=== PATIENT | female | born 1945 | race Caucasian/White ===

== ENCOUNTER → 2018-06-30 11:58 | Outpatient (CLI) | payer MEDICARE, OTHER, SELFPAY ==
--- NOTE | 2018-06-30 | DI.MG.S_ITS ---
BILATERAL DIGITAL SCREENING MAMMOGRAM 3D/2D WITH CAD: 06/30/2018 CLINICAL: Routine screening. Family history of breast cancer. Comparison is made to exams dated: 06/09/2017 mammogram, 06/06/2016 mammogram, and 05/30/2015 mammogram - [facility]. The tissue of both breasts is extremely dense, which lowers the sensitivity of mammography. Current study was also evaluated with a Computer Aided Detection (CAD) system. There are benign vascular calcifications in both breasts. No significant masses, calcifications, or other findings are seen in either breast. There has been no significant interval change. IMPRESSION: There is no mammographic evidence of malignancy. A 1 year screening mammogram is recommended. This exam was interpreted at Station ID: [id number]. NOTE: For mammograms, a report in lay terms will be sent to the patient. Approximately 15% of breast malignancies will not be visualized mammographically. In the management of a palpable breast mass, a negative mammogram must not discourage biopsy of a clinically suspicious lesion. Electronically Signed By: Anant del rio/pelon:07/01/2018 07:19:57 letter sent: Normal Exam ACR BI-RADS Category 2: Benign Finding(s) 3342F
== END ==
PROVIDERS: Family Provider Family Medicine; PCP Family Medicine; Visit Provider Family Medicine
DX: Z12.31 Encounter for screening mammogram for malignant neoplasm of breast (principal); Z80.3 Family history of malignant neoplasm of breast
CPT/HCPCS: 77063; 77067

== ENCOUNTER → 2018-08-31 11:11 | Outpatient (CLI) | payer MEDICARE, OTHER, SELFPAY ==
--- NOTE | 2018-08-31 | DI.RAD.S_ITS ---
PROCEDURE: FL UPPER GI W AIR INDICATIONS: DYSPHAGIA COMPARISON: None. FINDINGS: KUB: Preprocedural wood calker film demonstrates a normal bowel gas pattern. No suspicious abdominal calcifications. Visualized solid organ contours appear normal. Bony structures appear unremarkable. Esophagus: Esophageal mucosa is normal on air-contrast views, however suboptimal evaluation due to poor gaseous distention. On single-contrast views, there is decreased esophageal peristalsis. No strictures, extrinsic mass effects, or diverticula. No hiatal hernia or elicited gastroesophageal reflux. Stomach: The stomach is normally distensible, with normal rugal fold thickness. No mucosal masses or ulcers. Pylorus and duodenal bulb appear normal in morphology. Duodenal folds are normal in thickness as well. IMPRESSION: Esophageal dysmotility Dictated by: Giovanny Jin M.D. on 08/31/2018 at 15:35 Approved by: Giovanny Jin M.D. on 08/31/2018 at 15:37
== END ==
PROVIDERS: Family Provider Family Medicine; PCP Family Medicine; Visit Provider Family Medicine
DX: R13.10 Dysphagia, unspecified (principal); K22.4 Dyskinesia of esophagus
CPT/HCPCS: 74247

== ENCOUNTER → 2019-02-15 12:32 | Outpatient (CLI) | payer MEDICARE, OTHER, SELFPAY | PROVIDERS: PCP Family Medicine; Visit Provider Family Medicine | DX: M85.852 Other specified disorders of bone density and structure, left thigh (principal); Z78.0 Asymptomatic menopausal state; Z87.891 Personal history of nicotine dependence | CPT/HCPCS: 77080 ==

== ENCOUNTER → 2019-11-08 09:43 | Outpatient (CLI) | payer MEDICARE, OTHER, SELFPAY ==
--- NOTE | 2019-11-08 | DI.MG.S_ITS ---
BILATERAL DIGITAL SCREENING MAMMOGRAM 3D/2D WITH CAD: 11/08/2019 CLINICAL: Routine screening. Family history of breast cancer. Comparison is made to exams dated: 06/30/2018 mammogram, 06/09/2017 mammogram, and 06/06/2016 mammogram - [facility]. The tissue of both breasts is heterogeneously dense. This may lower the sensitivity of mammography. Current study was also evaluated with a Computer Aided Detection (CAD) system. There is a new 1.2 cm oval equal density focal asymmetry in the left breast at 9 o'clock middle depth. No other significant masses, calcifications, or other findings are seen in either breast. IMPRESSION: INCOMPLETE: NEEDS ADDITIONAL IMAGING EVALUATION The new 1.2 cm oval equal density focal asymmetry in the left breast resembles a cyst and is indeterminate. Additional views with possible ultrasound are recommended. This exam was interpreted at Station ID: [id number]. NOTE: For mammograms, a report in lay terms will be sent to the patient. Approximately 15% of breast malignancies will not be visualized mammographically. In the management of a palpable breast mass, a negative mammogram must not discourage biopsy of a clinically suspicious lesion. Electronically Signed By: Tito Mancia M.D. aty/:11/08/2019 10:28:28 letter sent: Additional Imaging Needed ACR BI-RADS Category 0: Incomplete 3340F
== END ==
PROVIDERS: PCP Family Medicine; Referring Provider Family Medicine; Visit Provider Family Medicine
DX: Z12.31 Encounter for screening mammogram for malignant neoplasm of breast (principal); Z80.3 Family history of malignant neoplasm of breast
CPT/HCPCS: 77063; 77067

== ENCOUNTER → 2019-11-22 14:05 | Outpatient (CLI) | payer MEDICARE, OTHER, SELFPAY ==
--- NOTE | 2019-11-22 | DI.US.S_ITS ---
ULTRASOUND OF LEFT BREAST: 11/22/2019 CLINICAL: ABN Mammo. Comparison is made to exams dated: 11/22/2019 mammogram, 11/08/2019 mammogram, 06/30/2018 mammogram, and 06/09/2017 mammogram - [facility]. Color flow and real-time ultrasound of the left breast were performed. Downey scale images of the real-time examination were reviewed. There is a 0.7 cm x 1 cm x 0.6 cm oval cyst in the left breast at 8 o'clock middle depth 6 cm from the nipple. This oval cyst is anechoic with posterior acoustic enhancement. Color flow imaging demonstrates that there is no vascularity present. This likely correlates with mammographic findings. There also is a 0.9 cm oval cyst in the left breast at 8 o'clock anterior depth. This oval cyst is anechoic. Color flow imaging demonstrates that there is no vascularity present. This likely correlates with mammographic finding described on today's study. Numerous other variably sized simple cysts are noted throughout the imaged left breast and many have likely mammographic correlates that also appear stable. IMPRESSION: BENIGN There is no sonographic evidence of malignancy. The 0.7 cm x 1 cm x 0.6 cm oval cyst in the left breast at 8 o'clock middle depth is consistent with a simple cyst and is benign. The 0.9 cm oval cyst in the left breast at 8 o'clock anterior depth is consistent with a simple cyst and is benign. A 1 year screening mammogram is recommended. This exam was interpreted at Station ID: [id number]. Electronically Signed By: Tito Mancia M.D. at/:11/22/2019 16:08:55 letter sent: Normal Exam Ultrasound BI-RADS: 2 Benign
--- NOTE | 2019-11-22 | DI.MG.S_ITS ---
UNILATERAL LEFT DIGITAL DIAGNOSTIC MAMMOGRAM 3D/2D WITH ADDITIONAL VIEWS: 11/22/2019 CLINICAL: Additional evaluation requested from prior study. Comparison is made to exams dated: 11/08/2019 mammogram, 06/30/2018 mammogram, and 06/09/2017 mammogram - [facility]. The tissue of left breast is heterogeneously dense. This may lower the sensitivity of mammography. There is a 1.2 cm oval equal density focal asymmetry in the left breast at 9 o'clock middle depth. This is seen in additional views. There also is a 0.9 cm oval equal density mass with a circumscribed margin in the left breast at 9-10 o'clock anterior depth. This is not significantly changed and likely represents a cyst. No other significant masses or calcifications are seen in the breast. IMPRESSION: INCOMPLETE: NEEDS ADDITIONAL IMAGING EVALUATION The 1.2 cm oval equal density focal asymmetry in the left breast at 9 o'clock middle depth resembles a cyst and is indeterminate. An ultrasound is recommended for further evaluation and is scheduled to immediately follow this study. This exam was interpreted at Station ID: [id number]. NOTE: For mammograms, a report in lay terms will be sent to the patient. Approximately 15% of breast malignancies will not be visualized mammographically. In the management of a palpable breast mass, a negative mammogram must not discourage biopsy of a clinically suspicious lesion. Electronically Signed By: Tito Mancia M.D. aty/:11/22/2019 15:03:58 ACR BI-RADS Category 0: Incomplete 3340F
== END ==
PROVIDERS: PCP Family Medicine; Referring Provider Family Medicine; Visit Provider Family Medicine
DX: R92.8 Other abnormal and inconclusive findings on diagnostic imaging of breast (principal); N60.02 Solitary cyst of left breast
CPT/HCPCS: 76642; 77065; G0279

== ENCOUNTER → 2020-08-27 15:01 | Outpatient (CLI) | payer MEDICARE, OTHER, SELFPAY ==
[2020-08-27] MEDS: COVID-19 VACC, Ad26(JANSSEN)/PF 0.5 ML IM (15:16)
== END ==
PROVIDERS: Visit Provider Internal Medicine
DX: Z23 Encounter for immunization (principal)
CPT/HCPCS: 0031A; 91303

== ENCOUNTER → 2021-02-16 15:00 | Outpatient (CLI) | payer MEDICARE, OTHER, SELFPAY ==
--- NOTE | 2021-02-16 | DI.MG.S_ITS ---
BILATERAL DIGITAL SCREENING MAMMOGRAM 3D/2D WITH CAD: 02/16/2021 CLINICAL: Routine screening. Family history of breast cancer. Comparison is made to exams dated: 11/08/2019 mammogram, 06/30/2018 mammogram, and 06/09/2017 mammogram - [facility]. The tissue of both breasts is heterogeneously dense. This may lower the sensitivity of mammography. Current study was also evaluated with a Computer Aided Detection (CAD) system. No significant masses, calcifications, or other findings are seen in either breast. There has been no significant interval change. IMPRESSION: NEGATIVE There is no mammographic evidence of malignancy. A 1 year screening mammogram is recommended. This exam was interpreted at Station ID: [id number]. NOTE: For mammograms, a report in lay terms will be sent to the patient. Approximately 15% of breast malignancies will not be visualized mammographically. In the management of a palpable breast mass, a negative mammogram must not discourage biopsy of a clinically suspicious lesion. Electronically Signed By: Ambrosio torres/pelon:02/19/2021 08:34:10 letter sent: Normal Exam ACR BI-RADS Category 1: Negative 3341F
== END ==
PROVIDERS: PCP Family Medicine; Referring Provider Family Medicine; Visit Provider Family Medicine
DX: Z12.31 Encounter for screening mammogram for malignant neoplasm of breast (principal); Z80.3 Family history of malignant neoplasm of breast
CPT/HCPCS: 77063; 77067

== ENCOUNTER → 2021-05-01 10:48 | Outpatient (CLI) | payer MEDICARE, OTHER, SELFPAY | PROVIDERS: PCP Family Medicine; Referring Provider Family Medicine; Visit Provider Family Medicine | DX: Z78.0 Asymptomatic menopausal state (principal); M85.852 Other specified disorders of bone density and structure, left thigh; E07.9 Disorder of thyroid, unspecified; Z87.891 Personal history of nicotine dependence | CPT/HCPCS: 77080 ==

== ENCOUNTER → 2022-09-03 12:48 | Outpatient (CLI) | payer MEDICARE, OTHER, SELFPAY ==
--- NOTE | 2022-09-03 | DI.MG.S_ITS ---
BILATERAL DIGITAL SCREENING MAMMOGRAM 3D/2D WITH CAD: 09/03/2022 CLINICAL: Routine screening. Family history of breast cancer. Comparison is made to exams dated: 02/16/2021 mammogram, 11/08/2019 mammogram, and 06/30/2018 mammogram - [facility]. Both breasts are heterogeneously dense, which may obscure small masses (category c / 51-75% glandular tissue). Current study was also evaluated with a Computer Aided Detection (CAD) system. There are benign calcifications in both breasts. There also are benign vascular calcifications in both breasts. Additionally, there are benign post operative findings in the left breast. No significant masses, calcifications, or other findings are seen in either breast. There has been no significant interval change. IMPRESSION: BENIGN There is no mammographic evidence of malignancy. A 1 year screening mammogram is recommended. Based on the Tyrer Cuzick model (a risk assessment model) the patient's lifetime risk is 8.3% and her 10 year risk is 0.0%. According to the ACR, ACS, and NCCN guidelines, an annual breast MRI exam along with mammogram is recommended if the patient's lifetime risk is 20% or greater. This exam was interpreted at Station ID: [id number]. NOTE: For mammograms, a report in lay terms will be sent to the patient. Approximately 15% of breast malignancies will not be visualized mammographically. In the management of a palpable breast mass, a negative mammogram must not discourage biopsy of a clinically suspicious lesion. Electronically Signed By: Cheyenne colón/pelon:09/03/2022 14:30:58 letter sent: Normal Exam ACR BI-RADS Category 2: Benign Finding(s) 3342F
== END ==
PROVIDERS: PCP Family Medicine; Referring Provider Family Medicine; Visit Provider Family Medicine
DX: Z12.31 Encounter for screening mammogram for malignant neoplasm of breast (principal); Z80.3 Family history of malignant neoplasm of breast
CPT/HCPCS: 77063; 77067

== ENCOUNTER → 2023-01-20 15:42 | Outpatient (CLI) | payer MEDICARE, OTHER, SELFPAY ==
--- NOTE | 2023-01-20 15:45 | DI.RAD.S_ITS ---
PROCEDURE: XR LUMBAR SPINE 2-3V INDICATIONS: LUMBAR SPINE PAIN TECHNIQUE: 3 views of the lumbar spine were acquired. COMPARISON: None. FINDINGS: Bones: 5 [id number] vertebrae are present. There is normal bony alignment. No vertebral body compression fractures. No suspicious bony lesions. Multilevel disc space narrowing and endplate osteophyte formation, as well as facet hypertrophy. Possible L5-S1 pars interarticularis defects. Soft tissues: Overlying bowel gas pattern is normal. No suspicious soft tissue calcifications. IMPRESSION: 1. Multilevel degenerative disc and facet disease. 2. Possible L5-S1 pars interarticularis defects. 3. MRI could be performed for further assessment, if clinically indicated. Dictated by: Hugh Renteria M.D. on 01/21/2023 at 13:08 Approved by: Hugh Renteria M.D. on 01/21/2023 at 13:10
== END ==
PROVIDERS: PCP Family Medicine; Referring Provider Family Medicine; Visit Provider Family Medicine
DX: M47.816 Spondylosis without myelopathy or radiculopathy, lumbar region (principal); M51.36 Other intervertebral disc degeneration, lumbar region; M54.50 Low back pain, unspecified
CPT/HCPCS: 72110

== ENCOUNTER → 2023-05-18 11:46 | Outpatient (CLI) | payer MEDICARE, OTHER, SELFPAY ==
--- NOTE | 2023-05-18 | DI.RAD.S_ITS ---
Bone Density Report Name: ABBY NGUYEN Age: 78 Sex: Female Ethnicity: White Date of : 1945 Indication: postmenopausal; screening for osteoporosis; parental hip fracture; Referring Provider: VILMA BARNARD Study: Bone densitometry was performed. Exam Date: May 18, 2023 Accession number: [id number] Bone Density: Region BMD T-score Z-score Classification AP Spine(L1-L4) 0.917 -1.2 1.3 Osteopenia Femoral Neck (Left) 0.688 -1.4 0.7 Osteopenia Total Hip (Left) 0.846 -0.8 1.1 Normal Femoral Neck (Right) 0.702 -1.3 0.9 Osteopenia Total Hip (Right) 0.873 -0.6 1.3 Normal Total Hip Mean 0.859 -0.7 1.2 Normal World Health Organization criteria for BMD impression classify patients as: Normal (T-score at or above -1.0), Osteopenia (T-score between -1.0 and -2.5), or Osteoporosis (T-score at or below -2.5). 10-year Fracture Risk(1): Major Osteoporotic Fracture 20% Hip Fracture 10% Reported Risk Factors: [place] (), Neck BMD=0.688, BMI=27.5, parental fracture (1) FRAX(R) Version 3.08. Fracture probability calculated for an untreated patient. Fracture probability may be lower if the patient has received treatment. Previous Exams: -- Region Exam Age BMD T-score BMD Change BMD Change Date g/cm2 vs Baseline vs Previous -- AP Spine (L1-L4) 05/18/2023 78 0.917 -1.2 -0.048 (-4.9%)# -0.063 (-6.4%)# 05/01/2021 76 0.980 -0.6 0.015 (1.6%) 0.002 (0.2%) 02/15/2019 73 0.978 -0.6 0.014 (1.4%) 0.014 (1.4%) 01/28/2010 64 0.965 -0.7 Total Hip(Left) 05/18/2023 78 0.846 -0.8 -0.094 (-10.0%)# -0.031 (-3.5%)# 05/01/2021 76 0.877 -0.5 -0.063 (-6.7%)* 0.004 (0.5%) 02/15/2019 73 0.873 -0.6 -0.067 (-7.1%)* -0.067 (-7.1%)* 01/28/2010 64 0.940 0.0 Total Hip(Right) 05/18/2023 78 0.873 -0.6 -0.095 (-9.8%)# -0.047 (-5.2%)# 05/01/2021 76 0.920 -0.2 -0.048 (-4.9%)* 0.014 (1.6%) 02/15/2019 73 0.906 -0.3 -0.062 (-6.4%)* -0.062 (-6.4%)* 01/28/2010 64 0.968 0.2 -- *Denotes significance at 95% confidence level, LSC for AP Spine = 0.022 g/cm2, LSC for Total Hip = 0.027 g/cm2 # Denotes dissimilar scan types or analysis methods Impression: The patient has low bone mass, based on the Left Femoral Neck T-score. The patient has an estimated ten-year risk of hip fracture of 10% and an estimated ten-year risk of major fracture of 20%, based on the WHO FRAX algorithm. The patient has risk factors, including: parental hip fracture. No significant bone loss was observed. Discussion: BONE DENSITY IS LOW AT ONE OR MORE SKELETAL SITES. THE PATIENT'S BMD AND CLINICAL RISK FACTORS CONTRIBUTE TO THIS PATIENT'S HIGH RISK OF FRACTURE. This patient's lowest T-score is low at one or more skeletal sites. It meets the World Health Organization's (WHO) criteria for low bone mass (T-score between -1.0 and -2.5). The patient's 10-year risk of hip fracture and 10 year risk of a major osteoporotic fracture as calculated by FRAX exceeds the threshold where pharmacological therapy is recommended by the National Osteoporosis Foundation (NOF). However, all treatment decisions require clinical judgment and consideration of individual patient factors, including patient preferences, comorbidities, previous drug use, risk factors not captured in the FRAX model (e.g., frailty, falls, vitamin D deficiency, increased bone turnover, interval significant decline in bone density) and possible under or overestimation of fracture risk by FRAX. The patient should follow a healthful lifestyle (good nutrition with adequate calcium and vitamin D, and appropriate weight-bearing exercise). Follow-Up: Consider a repeat BMD and Vertebral Fracture Assessment (VFA) exam in 2 years or sooner if medically necessary, to reassess this patient's status. Reported by: BLANQUITA DE LA CRUZ M.D. on 05/18/2023 12:37:00 PM.
--- NOTE | 2023-05-18 | DI.ECHO.S_ITS ---
[facility] +---------+ : : [address] : : : : [id number] : : : : Phone: [phone]---------+ Echocardiogram Report + + :Name: ABBY NGUYEN Study Date: 05/18/2023 Height: 64 in : :[facility] ReadingLocation: Weight: 160 lb : : Gender: Female BSA: 1.8 m2 : :: 1945 Age: 78 yrs BP: 162/91 mmHg: :Reason For Study: FAMILY HISTORY OF ISCHEMIC HEART DISEASE : :Ordering Physician: AKIL, : :VILMA Performed By: Kayla Ngo : :Referring: VILMA BARNARD : + + Interpretation Summary The ejection fraction is estimated to be 60-65%. Grade I diastolic dysfunction. The right ventricle is normal in size and function. The right ventricular systolic pressure is estimated to be at least 23 mmHg based on an estimated right atrial pressure of 3 mm Hg. The left atrium is mildly dilated. There is prolapse of the posterior mitral valve leaflet(s). Procedure: A two-dimensional transthoracic echocardiogram with color flow and Doppler was performed. The study quality was technically adequate. There is no prior echocardiogram noted for this patient. The patient was in sinus bradycardia with heart rates between 55-60 bpm during the exam. Left Ventricle: The left ventricle is normal in size and wall thickness. The ejection fraction is estimated to be 60-65%. Grade I diastolic dysfunction. Right Ventricle: The right ventricle is normal in size and function. Atria: The left atrium is mildly dilated. Right atrial size is normal. There is no Doppler evidence for an interatrial shunt. Mitral Valve: The mitral valve leaflets appear mildly thickened, but open well. There is prolapse of the posterior mitral valve leaflet(s). There is moderate mitral regurgitation. Aortic Valve: The aortic valve is trileaflet. The aortic valve opens well. There is no aortic valve stenosis. No aortic regurgitation is present. Tricuspid Valve: The tricuspid valve is normal in structure and function. There is trace tricuspid regurgitation. The right ventricular systolic pressure is estimated to be at least 23 mmHg based on an estimated right atrial pressure of 3 mm Hg. Pulmonic Valve: The pulmonic valve leaflets are thin and pliable; valve motion is normal. There is trace pulmonic regurgitation. Great Vessels: The aortic root is normal size. The dimensions of the ascending aorta are normal. The IVC is of normal diameter and collapses greater than 50% with a sniff. This suggests a low right atrial pressure of 3 mm Hg. Pericardium/ Pleura There is no pericardial effusion. There is no pleural effusion. MMode/2D Measurements & Calculations LVIDd: 4.8 cm LVOT diam: 2.0 cm LVIDs: 2.9 cm Ao root diam: 3.1 cm FS: 38.8 % asc Aorta Diam: 3.4 cm IVSd: 0.88 cm Ao Arch Diam (Prox Trans): 2.8 cm LVPWd: 0.79 cm LV bahena. diameter/BSA (cm/m^2): 2.7 LV sys. diameter/BSA (cm/m^2): 1.6 LA A2 area: 19.5 cm2 RA long axis: 4.6 cm LA A4 area: 18.3 cm2 RA area: 14.1 cm2 LA length (vol): 5.0 cm RA vol: 36.7 ml LA vol: 60.8 ml RA : 20.6 ml/m2 LA vol index: 34.2 ml/m2 IVC diam: 1.5 cm RVD1 (basal): 3.2 cm RVD2 (mid): 2.4 cm TAPSE: 2.2 cm Doppler Measurements & Calculations Ao V2 max: 95.2 cm/sec LVOT Max Moncho: 94.7 cm/sec Ao V2 mean: 68.2 cm/sec LV V1 max P.6 mmHg Ao max P.6 mmHg LV V1 VTI: 20.2 cm Ao mean P.0 mmHg JAMES(I,D): 2.8 cm2 Ao V2 VTI: 22.1 cm JAMES(V,D): 3.0 cm2 sev ratio: 0.92 JAMES indexed to BSA (cm^2/m^2): 1.6 MV E max moncho: 80.8 cm/sec TR max moncho: 223.1 cm/sec MV A max moncho: 90.3 cm/sec TR max P.9 mmHg MV E/A: 0.90 PA V2 max: 79.3 cm/sec Med Peak E' Moncho: 6.5 cm/sec PA V2 mean: 55.4 cm/sec E/E' med: 12.5 PA mean P.4 mmHg Lat Peak E' Moncho: 7.8 cm/sec PA pr(Accel): 25.9 mmHg E/E' lat: 10.4 E/e' average: 11.4 MV dec time: 0.28 sec MR ERO: 0.15 cm2 MR PISA: 2.6 cm2 SV(LVOT): 61.6 ml MR flow rate: 99.1 cm3/sec MR PISA radius: 0.65 cm Reading Physician:PM
== END ==
PROVIDERS: PCP Family Medicine; Referring Provider Family Medicine; Visit Provider Family Medicine
DX: I34.0 Nonrheumatic mitral (valve) insufficiency; I34.1 Nonrheumatic mitral (valve) prolapse; R01.1 Cardiac murmur, unspecified; M85.89 Other specified disorders of bone density and structure, multiple sites; Z82.49 Family history of ischemic heart disease and other diseases of the circulatory system
CPT/HCPCS: 77080; 93306

== ENCOUNTER → 2023-11-05 11:19 | Outpatient (CLI) | payer MEDICARE, OTHER, SELFPAY ==
--- NOTE | 2023-11-05 11:21 | DI.MG.S_ITS ---
BILATERAL DIGITAL SCREENING MAMMOGRAM 3D/2D WITH CAD: 11/05/2023 CLINICAL: Routine screening. Family history of breast cancer. Comparison is made to exams dated: 09/03/2022 mammogram, 02/16/2021 mammogram, and 11/08/2019 mammogram - [facility]. Both breasts are heterogeneously dense, which may obscure small masses (category c / 51-75% glandular tissue). Current study was also evaluated with a Computer Aided Detection (CAD) system. There are benign post operative findings in the left breast. No significant masses, calcifications, or other findings are seen in either breast. There has been no significant interval change. IMPRESSION: BENIGN There is no mammographic evidence of malignancy. A 1 year screening mammogram is recommended. Based on the Tyrer Cuzick model (a risk assessment model) the patient's lifetime risk is 7.5% and her 10 year risk is 0.0%. According to the ACR, ACS, and NCCN guidelines, an annual breast MRI exam along with mammogram is recommended if the patient's lifetime risk is 20% or greater. This exam was interpreted at Station ID: [id number]. NOTE: For mammograms, a report in lay terms will be sent to the patient. Approximately 15% of breast malignancies will not be visualized mammographically. In the management of a palpable breast mass, a negative mammogram must not discourage biopsy of a clinically suspicious lesion. Electronically Signed By: Malissa Metcalf M.D., Ph.D. matt/pelon:11/06/2023 02:27:53 letter sent: Normal Exam ACR BI-RADS Category 2: Benign Finding(s) 3342F
== END ==
LOC: MAMMO 11:21
PROVIDERS: PCP Family Medicine; Referring Provider Family Medicine; Visit Provider Family Medicine
DX: Z12.31 Encounter for screening mammogram for malignant neoplasm of breast (principal); Z80.3 Family history of malignant neoplasm of breast; R92.333 Mammographic heterogeneous density, bilateral breasts
CPT/HCPCS: 77063; 77067